=== PATIENT | male | born 1965 | race Caucasian/White ===

== ENCOUNTER 2020-02-03 16:39 | Inpatient (IN) | payer OTHER ==
[2020-02-03 17:24] LABS: ABSOLUTE BASOPHILS # (AUTO) 0.1 10^3/uL (0.0-0.2); ABSOLUTE EOSINOPHILS # (AUTO) 0.5 10^3/uL (0.0-0.6); ABSOLUTE LYMPHOCYTES (AUTO) 2.4 10^3/uL (0.5-4.7); ABSOLUTE MONOCYTES (AUTO) 1.6 10^3/uL (0.1-1.4); ABSOLUTE NEUT (AUTO) 12.7 10^3/uL (1.7-8.2); BASOPHILS % (AUTO) 0.7 % (0-2); HEMATOCRIT 43.8 % (37.9-51.0); HEMOGLOBIN 15.1 g/dL (13.5-17.0); LYMPHOCYTES % (AUTO) 13.9 % (13-45); MEAN CORPUSCULAR HEMOGLOBIN 32.7 pg (27.0-33.4); MEAN CORPUSCULAR HGB CONC 34.4 g/dL (32.0-36.0); MEAN CORPUSCULAR VOLUME 95 fl (80-97); MONOCYTES % (AUTO) 9.2 % (3-13); PLATELET COUNT 387 10^3/uL (150-450); RED BLOOD COUNT 4.62 10^6/uL (4.35-5.55); RED CELL DISTRIBUTION WIDTH 15.3 % (11.5-14.0); SEGMENTED NEUTROPHILS % (AUTO) 73.2 % (42-78); TOTAL CELLS COUNTED % (AUTO) 100 %; WHITE BLOOD COUNT 17.4 10^3/uL (4.0-10.5)
[2020-02-03] MEDS ORDERED: HYDROCODONE/ACETAMINOPHEN 5-325 MG TABLET PO ONE (17:57)
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
[2020-02-03] MEDS ORDERED: VANCOMYCIN HCL INJ 1000 MG VIAL IV ONE (19:14)
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
[2020-02-03 19:27] LABS: ALBUMIN 3.4 g/dL (3.5-5.0); ALKALINE PHOSPHATASE 108 U/L (38-126); ANION GAP 7 (5-19); ASPARTATE AMINO TRANSFERASE 36 U/L (17-59); BILIRUBIN,DIRECT 0.1 mg/dL (0.0-0.4); BILIRUBIN,TOTAL 0.8 mg/dL (0.2-1.3); BLOOD UREA NITROGEN 12 mg/dL (7-20); CALCIUM 8.8 mg/dL (8.4-10.2); CARBON DIOXIDE 30 mmol/L (22-30); CHLORIDE 99 mmol/L (98-107); GLUCOSE 128 mg/dL (75-110); POTASSIUM 3.4 mmol/L (3.6-5.0)
[2020-02-03] MEDS ORDERED: LORAZEPAM INJ 2 MG/1 ML VIAL IV PRN ×2 (20:38→23:05)
[2020-02-03] MEDS ORDERED: GUAIFENESIN SYRP 200 MG/10 ML UDC PO PRN (20:38)
[2020-02-03] MEDS ORDERED: ACETAMINOPHEN 325 MG TABLET PO PRN (20:38)
[2020-02-03] MEDS ORDERED: INSULIN REG, HUMAN 100 UNIT/ML 3 ML VIAL (PYX) SUBCUT PRN (20:38)
[2020-02-03] MEDS ORDERED: MAGNESIUM HYDROXIDE SUSP 30 ML UDCUP PO PRN (20:38)
[2020-02-03] MEDS ORDERED: MAG HYDROX/AL HYDROX/SIMETH SUSP 30 ML UDCUP PO PRN (20:38)
[2020-02-03] MEDS ORDERED: MORPHINE SULFATE 10 MG/ML INJ IV PRN ×5 (20:38→23:05)
[2020-02-03] MEDS ORDERED: HYDRALAZINE HCL INJ/PF 20 MG/1 ML SDV IV PRN (20:38)
[2020-02-03] MEDS ORDERED: DEXTROSE 40% GEL 15 GM TUBE PO PRN ×2 (20:45)
[2020-02-03] MEDS ORDERED: GLUCAGON,HUMAN RECOMB 1 MG INJ IM PRN (20:45)
[2020-02-03] MEDS ORDERED: DEXTROSE 50%-WATER 25 GM/50 ML DISP.SYRIN IV PRN ×2 (20:45)
[2020-02-03] MEDS: HEPARIN SOD (PORCINE) 5,000 UNIT/ML 1 ML VIAL SUBCUT SCH (21:26)
[2020-02-03] MEDS ORDERED: FAMOTIDINE 20 MG TABLET PO SCH (22:00)
[2020-02-03] MEDS ORDERED: SUCRALFATE 1 GM TABLET PO SCH (22:00)
[2020-02-03] MEDS ORDERED: MEROPENEM 1 GM VIAL IV SCH (22:00)
[2020-02-03] MEDS ORDERED: METOCLOPRAMIDE HCL 10 MG TABLET PO SCH (22:00)
[2020-02-03] MEDS: MEROPENEM 1 GM in NORMAL SALINE 50 ML IV SCH (22:40)
--- NOTE | 2020-02-03 22:53 | EKG REPORT ---
SEVERITY:- ABNORMAL ECG - SINUS RHYTHM ATRIAL PREMATURE COMPLEX FIRST DEGREE AV BLOCK LEFT ANTERIOR FASCICULAR BLOCK CONSIDER ANTEROSEPTAL INFARCT : Confirmed by: Karina Schulz 03-Feb-2020 22:52:24
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
[2020-02-03] MEDS ORDERED: HALOPERIDOL LACTATE INJ 5 MG/1 ML VIAL IV PRN (23:02)
[2020-02-04] MEDS: MORPHINE SULFATE 10 MG/ML INJ IV PRN ×3 (00:36→06:11)
[2020-02-04] MEDS: VANCOMYCIN HCL 1,500 MG in DEXTROSE 5%-WATER 250 ML IV SCH ×2 (02:34→10:14)
[2020-02-04] MEDS: HEPARIN SOD (PORCINE) 5,000 UNIT/ML 1 ML VIAL SUBCUT SCH ×3 (05:33→21:18)
[2020-02-04] MEDS: MEROPENEM 1 GM in NORMAL SALINE 50 ML IV SCH (05:33)
[2020-02-04] MEDS: PANTOPRAZOLE SODIUM 40 MG TABLET.DR PO SCH ×2 (05:34→17:07)
[2020-02-04] MEDS ORDERED: VANCOMYCIN HCL INJ 1000 MG VIAL IV SCH (06:00)
[2020-02-04 07:10] LABS: HEMATOCRIT 43.5 % (37.9-51.0); HEMOGLOBIN 15.2 g/dL (13.5-17.0); MEAN CORPUSCULAR VOLUME 94 fl (80-97); PLATELET COUNT 386 10^3/uL (150-450); RED BLOOD COUNT 4.61 10^6/uL (4.35-5.55); RED CELL DISTRIBUTION WIDTH 15.4 % (11.5-14.0); WHITE BLOOD COUNT 15.3 10^3/uL (4.0-10.5)
[2020-02-04 07:33] LABS: AMYLASE 33 U/L (30-110); ANION GAP 7 (5-19); BLOOD UREA NITROGEN 12 mg/dL (7-20); CALCIUM 8.9 mg/dL (8.4-10.2); CARBON DIOXIDE 31 mmol/L (22-30); CHLORIDE 97 mmol/L (98-107); CHOLESTEROL 108.03 mg/dL (0-200); GLUCOSE 100 mg/dL (75-110); POTASSIUM 3.4 mmol/L (3.6-5.0); TRIGLYCERIDES 97 mg/dL (<150)
[2020-02-04 07:44] LABS: DIRECT LDL 65 mg/dL (<100)
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
[2020-02-04] MEDS: INSULIN REG, HUMAN 100 UNIT/ML 3 ML VIAL (PYX) SUBCUT SCH ×4 (08:48→21:13)
[2020-02-04] MEDS ORDERED: BACITRACIN ZINC OINTMENT 15 GM TP SCH (10:00)
[2020-02-04] MEDS: KETOROLAC TROMETHAMINE INJ/PF 30 MG/1 ML SDV IV PRN ×3 (10:13→23:19)
[2020-02-04] MEDS: BUPROPION HCL 75 MG TABLET PO SCH ×2 (10:15→21:18)
[2020-02-04] MEDS: DOCUSATE SODIUM 100 MG CAPSULE PO SCH ×2 (10:16→17:07)
[2020-02-04] MEDS ORDERED: DIPHENHYDRAMINE HCL 25 MG CAPSULE PO PRN (10:27)
[2020-02-04] MEDS: NEOMY/BACITRAC ZN/POLY OINT 15 GM TP SCH ×2 (10:29→21:19)
[2020-02-04 11:42] LABS: FREE T3 4.44 pg/mL (2.77-5.27); FREE T4 (FREE THYROXINE) 1.56 ng/dL (0.78-2.19)
[2020-02-04] MEDS ORDERED: CEPHALEXIN 500 MG CAPSULE PO SCH (12:00)
[2020-02-04] MEDS: HYDROCODONE/ACETAMINOPHEN 5-325 MG TABLET PO PRN ×4 (12:06→20:10)
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
[2020-02-04] MEDS ORDERED: ONDANSETRON HCL INJ/PF 4 MG/2 ML SDV IV PRN (15:58)
[2020-02-04] MEDS: CLINDAMYCIN HCL 150 MG CAPSULE PO SCH ×3 (17:07→23:19)
[2020-02-04] MEDS: PROMETHAZINE HCL INJ 25 MG/1 ML VIAL IV PRN (17:15)
[2020-02-05] MEDS: HYDROCODONE/ACETAMINOPHEN 5-325 MG TABLET PO PRN ×2 (03:56→09:15)
[2020-02-05 05:06] LABS: HEMATOCRIT 41.8 % (37.9-51.0); HEMOGLOBIN 14.7 g/dL (13.5-17.0); MEAN CORPUSCULAR HGB CONC 35.3 g/dL (32.0-36.0); MEAN CORPUSCULAR VOLUME 93 fl (80-97); PLATELET COUNT 345 10^3/uL (150-450); RED BLOOD COUNT 4.47 10^6/uL (4.35-5.55); RED CELL DISTRIBUTION WIDTH 15.6 % (11.5-14.0); WHITE BLOOD COUNT 11.4 10^3/uL (4.0-10.5)
[2020-02-05 05:31] LABS: ANION GAP 6 (5-19); BLOOD UREA NITROGEN 20 mg/dL (7-20); CALCIUM 9.2 mg/dL (8.4-10.2); CARBON DIOXIDE 29 mmol/L (22-30); CHLORIDE 101 mmol/L (98-107); GLUCOSE 120 mg/dL (75-110)
[2020-02-05] MEDS: KETOROLAC TROMETHAMINE INJ/PF 30 MG/1 ML SDV IV PRN (06:17)
[2020-02-05] MEDS: HEPARIN SOD (PORCINE) 5,000 UNIT/ML 1 ML VIAL SUBCUT SCH (06:17)
[2020-02-05] MEDS: PANTOPRAZOLE SODIUM 40 MG TABLET.DR PO SCH (06:17)
[2020-02-05] MEDS: CLINDAMYCIN HCL 150 MG CAPSULE PO SCH (06:17)
[2020-02-05] MEDS: PROMETHAZINE HCL INJ 25 MG/1 ML VIAL IV PRN (06:20)
[2020-02-05] MEDS: INSULIN REG, HUMAN 100 UNIT/ML 3 ML VIAL (PYX) SUBCUT SCH (08:05)
[2020-02-05 08:23] VITALS: BP 139/75
[2020-02-05] MEDS: BUPROPION HCL 75 MG TABLET PO SCH (09:08)
[2020-02-05] MEDS: DOCUSATE SODIUM 100 MG CAPSULE PO SCH (09:09)
[2020-02-05] MEDS ORDERED: MULTIVITAMIN TABLET PO SCH (10:00)
[2020-02-05] MEDS ORDERED: FOLIC ACID 1 MG TABLET PO SCH (10:00)
[2020-02-05] MEDS ORDERED: THIAMINE HCL 100 MG TABLET PO SCH (10:00)
[2020-02-05] MEDS ORDERED: NICOTINE 14 MG/24 HR PATCH.TD24 TD SCH (10:00)
[2020-02-05] MEDS ORDERED: CHLORPROMAZINE HCL 50 MG TABLET PO SCH (10:30)
--- NOTE | 2020-02-05 10:35 | PDOC PROGRESS REPORT ---
Subjective Progress Note for:: 02/05/20 Subjective:: This is a 54-year-old diabetic male with ulcerations of the lower extremity. He has not been wearing his EDIN hose. He still complains of discomfort in his lower extremities. He is complaining of back pain at this time as well. He denies fevers, chills, chest pain, shortness of breath, dizziness, orthostasis, blurry vision, malaise, or fatigue. Reason For Visit: LEFT LOWER LEG CELLULITIS Physical Exam Vital Signs: Temp Pulse Resp BP Pulse Ox 97.5 F 74 18 139/75 H 93 02/05/20 08:00 02/05/20 08:00 02/05/20 08:00 02/05/20 08:00 02/05/20 08:00 Intake & Output 02/04/20 02/05/20 02/06/20 06:59 06:59 06:59 Intake Total 1230 2630 Balance 1230 2630 Weight 127 kg 127 kg General appearance: PRESENT: no acute distress, morbidly obese Eye exam: PRESENT: EOMI, PERRLA Mouth exam: PRESENT: moist, neck supple Neck exam: ABSENT: thyromegaly, tracheal deviation Respiratory exam: PRESENT: unlabored. ABSENT: tachypnea, wheezes Cardiovascular exam: ABSENT: tachycardia GI/Abdominal exam: PRESENT: soft. ABSENT: distended, tenderness Rectal exam: PRESENT: deferred Musculoskeletal exam: ABSENT: deformity Neurological exam: PRESENT: alert, awake Psychiatric exam: ABSENT: agitated, anxious Focused psych exam: PRESENT: restlessness - Patient does appear restless today, and does not want to sit down for an examination. He insists on moving continuously. Skin exam: PRESENT: erythema - Mild lower extremity erythema bilaterally., other - Shallow ulcerations to the lower extremity skin. There is also some edema. The patient has again declined to remove his shoes for an examination. Results Laboratory Results: 02/05/20 04:38 02/05/20 04:38 02/04/20 02/04/20 02/05/20 06:21 10:11 04:38 WBC 11.4 H RBC 4.47 Hgb 14.7 Hct 41.8 MCV 93 MCH 33.0 MCHC 35.3 RDW 15.6 H Plt Count 345 Sodium Potassium Chloride Carbon Dioxide Anion Gap BUN Creatinine Est GFR ( Amer) Glucose Lactic Acid 1.5 Calcium Magnesium Free T4 1.56 Free T3 pg/mL 4.44 02/05/20 04:38 WBC RBC Hgb Hct MCV MCH MCHC RDW Plt Count Sodium 135.6 L Potassium 4.0 Chloride 101 Carbon Dioxide 29 Anion Gap 6 BUN 20 Creatinine 0.86 Est GFR ( Amer) > 60 Glucose 120 H Lactic Acid Calcium 9.2 Magnesium 2.0 Free T4 Free T3 pg/mL Impressions: Tibia/Fibula X-Ray 02/03/20 17:56 IMPRESSION: NORMAL STUDY. Assessment & Plan - Diagnosis (1) Cellulitis of both lower extremities Is this a current diagnosis for this admission?: Yes - Plan Summary Plan Summary: This is a 54-year-old male with lower extremity erythema, ulcerations, and I believe superimposed chronic venous insufficiency. Yesterday, I recommended that he wash the ulcers with soap and water twice daily. He has not done this. I have also recommended EDIN hose. He is not wearing them. I have again recommended the utilization of EDIN hose, soap and water washings of his ulcerations, and the use of nonadherent dressings with antibiotic ointment. Continue systemic antibiotics per medical team. No surgical intervention planned at this time. Surgery will sign off. Please renotify with any questions or concerns.
[2020-02-05] MEDS: NEOMY/BACITRAC ZN/POLY OINT 15 GM TP SCH (10:55)
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
[2020-02-05] MEDS ORDERED: BENZTROPINE MESYLATE 1 MG TABLET PO SCH (22:00)
== END 2020-02-05 11:47 | disposition home or self-care (01) | DRG 603 ==
LOC: ER 16:39 → EH 19:34 → 4N 21:04
PROVIDERS: ADMIT Emergency Medicine; ATTEND Registered Nurse
DX: L03.116 Cellulitis of left lower limb (principal); F20.0 Paranoid schizophrenia; L03.115 Cellulitis of right lower limb; E78.5 Hyperlipidemia, unspecified; I10 Essential (primary) hypertension; E66.01 Morbid (severe) obesity due to excess calories; Z68.36 Body mass index [BMI] 36.0-36.9, adult; E11.9 Type 2 diabetes mellitus without complications; S30.811A Abrasion of abdominal wall, initial encounter; L08.9 Local infection of the skin and subcutaneous tissue, unspecified; X58.XXXA Exposure to other specified factors, initial encounter; I89.0 Lymphedema, not elsewhere classified; R00.0 Tachycardia, unspecified; M54.9 Dorsalgia, unspecified; K70.30 Alcoholic cirrhosis of liver without ascites; F10.20 Alcohol dependence, uncomplicated; F17.210 Nicotine dependence, cigarettes, uncomplicated; Z88.0 Allergy status to penicillin; Z88.2 Allergy status to sulfonamides; Z90.81 Acquired absence of spleen; Z79.84 Long term (current) use of oral hypoglycemic drugs; Z79.4 Long term (current) use of insulin; Z79.891 Long term (current) use of opiate analgesic; Z79.899 Other long term (current) drug therapy
CPT/HCPCS: 36415; 80048; 80053; 80061; 82150; 82962; 83036; 83605; 83690; 83735; 84439; 84443; 84481; 85025; 85027; 93005; 93010; 99285; J1644; J1815; J1885; J2185; J2270; J2550; J3370; J3490; J7060

== ENCOUNTER 2020-02-05 22:40 | Emergency (ER) | payer SELFPAY ==
[2020-02-05 23:44] VITALS: BP 100/52
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
== END 2020-02-06 02:00 ==
LOC: ER 22:40
DX: R52 Pain, unspecified (principal); E78.00 Pure hypercholesterolemia, unspecified; I10 Essential (primary) hypertension; E11.9 Type 2 diabetes mellitus without complications; Z88.2 Allergy status to sulfonamides; Z88.0 Allergy status to penicillin
CPT/HCPCS: 99284

== ENCOUNTER 2020-02-06 12:27 | Emergency (ER) | payer SELFPAY ==
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
[2020-02-06 13:05] LABS: APPEARANCE,URINE CLEAR; BILIRUBIN,URINE NEGATIVE (NEGATIVE); COLOR,URINE STRAW; GLUCOSE, URINE NEGATIVE (NEGATIVE); KETONES,URINE NEGATIVE (NEGATIVE); PROTEIN,URINE NEGATIVE (NEGATIVE); URINE SPECIFIC GRAVITY 1.002; UROBILINOGEN,URINE NEGATIVE mg/dL (<2.0)
[2020-02-06 13:33] LABS: URINE AMPHETAMINES SCREEN NEGATIVE; URINE BARBITURATES SCREEN NEGATIVE; URINE BENZODIAZEPINES SCREEN NEGATIVE; URINE MARIJUANA (THC) SCREEN NEGATIVE; URINE METHADONE SCREEN NEGATIVE; URINE PHENCYCLIDINE SCREEN NEGATIVE
[2020-02-06 13:34] LABS: URINE COCAINE SCREEN UNCONFIRMED POSITIVE
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
[2020-02-06] MEDS ORDERED: ACETAMINOPHEN 325 MG TABLET PO ONE (13:49)
[2020-02-06 14:36] LABS: HEMATOCRIT 44.7 % (37.9-51.0); HEMOGLOBIN 15.3 g/dL (13.5-17.0); MEAN CORPUSCULAR HEMOGLOBIN 32.3 pg (27.0-33.4); MEAN CORPUSCULAR HGB CONC 34.2 g/dL (32.0-36.0); MEAN CORPUSCULAR VOLUME 94 fl (80-97); PLATELET COUNT 399 10^3/uL (150-450); RED BLOOD COUNT 4.73 10^6/uL (4.35-5.55); RED CELL DISTRIBUTION WIDTH 15.6 % (11.5-14.0); WHITE BLOOD COUNT 11.3 10^3/uL (4.0-10.5)
[2020-02-06 14:54] LABS: ABSOLUTE LYMPHOCYTES# (MANUAL) 3.3 10^3/uL (0.5-4.7); ABSOLUTE MONOCYTES # (MANUAL) 1.4 10^3/uL (0.1-1.4); BASOPHILS % (MANUAL) 3 % (0-2); EOSINOPHILS % (MANUAL) 1 % (0-6); LYMPHOCYTES % (MANUAL) 25 % (13-45); METAMYELOCYTES % (MANUAL) 1 % (0-1); MONOCYTES % (MANUAL) 12 % (3-13); SEGMENTED NEUTROPHILS % (MAN) 54 % (42-78); TOTAL CELLS COUNTED 100
[2020-02-06 14:55] LABS: ALBUMIN 3.8 g/dL (3.5-5.0); ALCOHOL 104 mg/dL (NONE DETECTED); ALKALINE PHOSPHATASE 109 U/L (38-126); ANION GAP 10 (5-19); ANISOCYTOSIS SLIGHT; ASPARTATE AMINO TRANSFERASE 47 U/L (17-59); BILIRUBIN,TOTAL 0.6 mg/dL (0.2-1.3); BLOOD UREA NITROGEN 10 mg/dL (7-20); CALCIUM 8.9 mg/dL (8.4-10.2); CARBON DIOXIDE 28 mmol/L (22-30); CHLORIDE 100 mmol/L (98-107); GLUCOSE 94 mg/dL (75-110); HOWELL-JOLLY BODIES PRESENT; PAPPENHEIMER BODIES PRESENT; POLYCHROMASIA SLIGHT; POTASSIUM 3.8 mmol/L (3.6-5.0); TARGET CELLS SLIGHT; TOTAL PROTEIN 7.7 g/dL (6.3-8.2)
[2020-02-06 14:56] LABS: PLATELET COMMENT ADEQUATE
[2020-02-06] MEDS ORDERED: NAPROXEN 250 MG TABLET PO ONE (15:33)
[2020-02-06 20:14] VITALS: BP 161/88
--- NOTE | 2020-02-07 00:02 | EKG REPORT ---
SEVERITY:- ABNORMAL ECG - SINUS RHYTHM FIRST DEGREE AV BLOCK ANTERIOR INFARCT, AGE INDETERMINATE BORDERLINE PROLONGED QT INTERVAL : Confirmed by: Karina Schulz 07-Feb-2020 00:01:38
== END 2020-02-06 20:14 | disposition home or self-care (01) ==
LOC: ER 12:27
DX: F14.19 Cocaine abuse with unspecified cocaine-induced disorder (principal); L03.116 Cellulitis of left lower limb; M79.605 Pain in left leg; F17.200 Nicotine dependence, unspecified, uncomplicated; I10 Essential (primary) hypertension; E11.9 Type 2 diabetes mellitus without complications
CPT/HCPCS: 36415; 80053; 80307; 81001; 83690; 84484; 85025; 93005; 93010; 99284

== ENCOUNTER 2020-02-06 22:46 | Emergency (ER) | payer SELFPAY ==
[2020-02-06 22:57] VITALS: BP 145/94
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
== END 2020-02-07 01:45 | disposition home or self-care (01) ==
LOC: ER 22:46
DX: R54 Age-related physical debility (principal); R06.02 Shortness of breath; Z88.0 Allergy status to penicillin; Z88.2 Allergy status to sulfonamides; Z87.891 Personal history of nicotine dependence; I10 Essential (primary) hypertension; E11.9 Type 2 diabetes mellitus without complications
CPT/HCPCS: 99283

== ENCOUNTER 2020-02-22 16:11 | Emergency (ER) | payer SELFPAY ==
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
[2020-02-22 16:52] LABS: APPEARANCE,URINE CLEAR; BILIRUBIN,URINE NEGATIVE (NEGATIVE); COLOR,URINE YELLOW; GLUCOSE, URINE NEGATIVE (NEGATIVE); KETONES,URINE NEGATIVE (NEGATIVE); LEUKOCYTE ESTERASE,URINE NEGATIVE (NEGATIVE); NITRITE,URINE NEGATIVE (NEGATIVE); PROTEIN,URINE NEGATIVE (NEGATIVE); URINE SPECIFIC GRAVITY 1.008; UROBILINOGEN,URINE NEGATIVE mg/dL (<2.0)
[2020-02-22 17:08] LABS: URINE AMPHETAMINES SCREEN NEGATIVE; URINE BARBITURATES SCREEN NEGATIVE; URINE COCAINE SCREEN NEGATIVE; URINE MARIJUANA (THC) SCREEN NEGATIVE; URINE METHADONE SCREEN NEGATIVE; URINE PHENCYCLIDINE SCREEN NEGATIVE
[2020-02-22 17:09] LABS: URINE BENZODIAZEPINES SCREEN UNCONFIRMED POSITIVE
[2020-02-22 17:41] LABS: HEMATOCRIT 45.4 % (37.9-51.0); MEAN CORPUSCULAR HEMOGLOBIN 33.2 pg (27.0-33.4); MEAN CORPUSCULAR HGB CONC 35.3 g/dL (32.0-36.0); MEAN CORPUSCULAR VOLUME 94 fl (80-97); PLATELET COUNT 440 10^3/uL (150-450); RED BLOOD COUNT 4.82 10^6/uL (4.35-5.55); RED CELL DISTRIBUTION WIDTH 15.2 % (11.5-14.0); WHITE BLOOD COUNT 17.7 10^3/uL (4.0-10.5)
[2020-02-22] MEDS ORDERED: KETOROLAC TROMETHAMINE 60 MG/2 ML SDV IM ONE (17:52)
[2020-02-22 17:56] LABS: ALBUMIN 4.2 g/dL (3.5-5.0); ALKALINE PHOSPHATASE 104 U/L (38-126); ANION GAP 13 (5-19); ASPARTATE AMINO TRANSFERASE 40 U/L (17-59); BILIRUBIN,DIRECT 0.2 mg/dL (0.0-0.4); BILIRUBIN,TOTAL 1.4 mg/dL (0.2-1.3); BLOOD UREA NITROGEN 18 mg/dL (7-20); CALCIUM 9.6 mg/dL (8.4-10.2); CARBON DIOXIDE 30 mmol/L (22-30); CHLORIDE 87 mmol/L (98-107); GLUCOSE 126 mg/dL (75-110); POTASSIUM 3.9 mmol/L (3.6-5.0); TOTAL PROTEIN 8.2 g/dL (6.3-8.2)
[2020-02-22 18:01] LABS: ABSOLUTE LYMPHOCYTES# (MANUAL) 3.5 10^3/uL (0.5-4.7); ABSOLUTE MONOCYTES # (MANUAL) 0.9 10^3/uL (0.1-1.4); BASOPHILS % (MANUAL) 3 % (0-2); EOSINOPHILS % (MANUAL) 1 % (0-6); LYMPHOCYTES % (MANUAL) 18 % (13-45); MONOCYTES % (MANUAL) 5 % (3-13); SEGMENTED NEUTROPHILS % (MAN) 71 % (42-78); TOTAL CELLS COUNTED 100
[2020-02-22 18:03] LABS: ANISOCYTOSIS SLIGHT; PLATELET COMMENT ADEQUATE; PLATELET LARGE PRESENT; POLYCHROMASIA SLIGHT; TOXIC GRANULATION SLIGHT; TOXIC VACUOLATION PRESENT
[2020-02-22] MEDS ORDERED: HYDROCODONE/ACETAMINOPHEN 5-325 MG TABLET PO ONE ×2 (18:17→19:35)
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
[2020-02-22] MEDS ORDERED: NICOTINE 21 MG/24 HR PATCH.TD24 TD ONE (20:46)
[2020-02-22] MEDS ORDERED: TRAMADOL HCL 50 MG TABLET PO ONE (20:47)
[2020-02-22] MEDS ORDERED: CLINDAMYCIN 600 MG/D5W RTU 600 MG/50 ML RTUPB IV ONE (21:04)
[2020-02-22] MEDS ORDERED: ONDANSETRON HCL INJ/PF 4 MG/2 ML SDV IV ONE (21:47)
[2020-02-22] MEDS ORDERED: MORPHINE SULFATE 10 MG/ML INJ IV ONE (21:48)
[2020-02-22 22:46] VITALS: BP 112/70
== END 2020-02-22 22:57 | disposition short-term general hospital (02) ==
LOC: ER 16:11
DX: S39.94XA Unspecified injury of external genitals, initial encounter (principal); N48.22 Cellulitis of corpus cavernosum and penis; X58.XXXA Exposure to other specified factors, initial encounter; F17.200 Nicotine dependence, unspecified, uncomplicated; I10 Essential (primary) hypertension; E11.9 Type 2 diabetes mellitus without complications; Z87.892 Personal history of anaphylaxis; Z88.0 Allergy status to penicillin; Z88.8 Allergy status to other drugs, medicaments and biological substances; Z88.2 Allergy status to sulfonamides
CPT/HCPCS: 99284; 96375; 96365; 36415; 87040; 87086; 85025; 87088; 80053; 81001; 80307; J2270; J2405

== ENCOUNTER 2020-07-10 20:07 | Emergency (ER) | payer OTHER ==
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
[2020-07-10 21:27] LABS: HEMATOCRIT 46.3 % (37.9-51.0); HEMOGLOBIN 15.9 g/dL (13.5-17.0); MEAN CORPUSCULAR HEMOGLOBIN 31.6 pg (27.0-33.4); MEAN CORPUSCULAR HGB CONC 34.3 g/dL (32.0-36.0); MEAN CORPUSCULAR VOLUME 92 fl (80-97); PLATELET COUNT 379 10^3/uL (150-450); RED BLOOD COUNT 5.02 10^6/uL (4.35-5.55); RED CELL DISTRIBUTION WIDTH 15.5 % (11.5-14.0); WHITE BLOOD COUNT 12.9 10^3/uL (4.0-10.5)
--- NOTE | 2020-07-10 21:44 | RADIOLOGY REPORT (SQ) ---
XR CHEST 1 VIEW HISTORY: Chest pain. COMPARISON: None. FINDINGS: The heart size is enlarged with mild central pulmonary vascular congestion. No consolidation, pleural effusion, or pneumothorax is seen. No acute bony findings are seen. Dual lead left chest wall pacemaker. IMPRESSION: Mild pulmonary edema pattern, without pleural effusions or focal consolidation.
[2020-07-10 21:47] LABS: ABSOLUTE LYMPHOCYTES# (MANUAL) 3.5 10^3/uL (0.5-4.7); ABSOLUTE MONOCYTES # (MANUAL) 1.3 10^3/uL (0.1-1.4); BAND NEUTROPHILS % (MANUAL) 1 % (3-5); BASOPHILS % (MANUAL) 0 % (0-2); EOSINOPHILS % (MANUAL) 4 % (0-6); LYMPHOCYTES % (MANUAL) 26 % (13-45); MONOCYTES % (MANUAL) 10 % (3-13); SEGMENTED NEUTROPHILS % (MAN) 58 % (42-78); TOTAL CELLS COUNTED 100
--- NOTE | 2020-07-10 21:47 | RADIOLOGY REPORT (SQ) ---
XR ABDOMEN 1 VIEW (KUB) HISTORY: Abdominal pain. COMPARISON: None. FINDINGS: There is a nonobstructive bowel gas pattern. No evidence of pneumoperitoneum. No radiopaque urinary stones are seen. The visualized lungs are clear. The bony structures are preserved. IMPRESSION: No acute findings.
[2020-07-10 21:49] LABS: ALBUMIN 4.1 g/dL (3.5-5.0); ALKALINE PHOSPHATASE 126 U/L (38-126); ANION GAP 10 (5-19); ANISOCYTOSIS SLIGHT; ASPARTATE AMINO TRANSFERASE 46 U/L (17-59); BILIRUBIN,DIRECT 0.5 mg/dL (0.0-0.4); BILIRUBIN,TOTAL 0.8 mg/dL (0.2-1.3); BLOOD UREA NITROGEN 10 mg/dL (7-20); CALCIUM 9.7 mg/dL (8.4-10.2); CARBON DIOXIDE 29 mmol/L (22-30); CHLORIDE 99 mmol/L (98-107); GLUCOSE 111 mg/dL (75-110); OVALOCYTES SLIGHT; PLATELET COMMENT ADEQUATE; POIKILOCYTOSIS SLIGHT; POLYCHROMASIA SLIGHT; TOTAL PROTEIN 7.8 g/dL (6.3-8.2)
--- NOTE | 2020-07-10 21:54 | RADIOLOGY REPORT (SQ) ---
EXAM DESCRIPTION: [facility]: XR FOOT 2 VIEWS BILATERAL Views: 2 views of each foot CLINICAL HISTORY: 54 years Male; foot pain; COMPARISON: None. FINDINGS: Left: Negative for acute fracture, dislocation, or radiopaque foreign body. Small Achilles calcaneal spur. Right: Negative for acute fracture, dislocation, or radiopaque foreign body. No lytic bone changes or acute periosteal reaction. IMPRESSION: 1. No acute findings.
[2020-07-10] MEDS ORDERED: FUROSEMIDE 40 MG TABLET PO ONE (23:02)
[2020-07-10] MEDS ORDERED: BUMETANIDE INJ/PF 1 MG/4 ML SDV IM ONE (23:03)
[2020-07-10] MEDS ORDERED: OXYCODONE-ACETAMINOPHEN 5-325 MG TABLET PO ONE (23:03)
[2020-07-11 00:37] VITALS: BP 151/85
--- NOTE | 2020-07-11 10:42 | EKG REPORT ---
SEVERITY:- ABNORMAL ECG - SINUS RHYTHM FIRST DEGREE AV BLOCK LEFT AXIS DEVIATION CONSIDER ANTEROSEPTAL INFARCT : Confirmed by: Sharla Ordonez MD 11-Jul-2020 10:40:58
== END 2020-07-11 00:20 | disposition home or self-care (01) ==
LOC: ER 20:07
DX: I11.0 Hypertensive heart disease with heart failure (principal); I50.9 Heart failure, unspecified; I87.2 Venous insufficiency (chronic) (peripheral); R07.9 Chest pain, unspecified; R53.1 Weakness; E11.9 Type 2 diabetes mellitus without complications; Z87.891 Personal history of nicotine dependence; Z95.810 Presence of automatic (implantable) cardiac defibrillator; Z87.892 Personal history of anaphylaxis; Z88.0 Allergy status to penicillin; Z88.8 Allergy status to other drugs, medicaments and biological substances; Z82.49 Family history of ischemic heart disease and other diseases of the circulatory system
CPT/HCPCS: 93005; 99284; 96372; 36415; 85025; 80053; 84484; 71045; 74018; 73620; 93010; J3490

== ENCOUNTER 2020-08-29 09:53 | Emergency (ER) | payer OTHER ==
[2020-08-29] MEDS ORDERED: KETOROLAC TROMETHAMINE 60 MG/2 ML SDV IM ONE (12:05)
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
[2020-08-29] MEDS ORDERED: DIPH/PERTUSS(ACELL)/TETANUS VAC/PF 0.5 ML SYR (>=10YO) IM ONE (12:48)
[2020-08-29 13:06] LABS: HEMATOCRIT 45.1 % (37.9-51.0); HEMOGLOBIN 15.2 g/dL (13.5-17.0); MEAN CORPUSCULAR HEMOGLOBIN 31.8 pg (27.0-33.4); MEAN CORPUSCULAR HGB CONC 33.7 g/dL (32.0-36.0); MEAN CORPUSCULAR VOLUME 94 fl (80-97); PLATELET COUNT 503 10^3/uL (150-450); RED BLOOD COUNT 4.78 10^6/uL (4.35-5.55); RED CELL DISTRIBUTION WIDTH 14.4 % (11.5-14.0); WHITE BLOOD COUNT 14.1 10^3/uL (4.0-10.5)
[2020-08-29 13:13] LABS: ABSOLUTE MONOCYTES # (MANUAL) 1.4 10^3/uL (0.1-1.4); BASOPHILS % (MANUAL) 0 % (0-2); EOSINOPHILS % (MANUAL) 0 % (0-6); LYMPHOCYTES % (MANUAL) 21 % (13-45); MONOCYTES % (MANUAL) 10 % (3-13); SEGMENTED NEUTROPHILS % (MAN) 69 % (42-78); TOTAL CELLS COUNTED 100
[2020-08-29 13:14] LABS: PLATELET COMMENT ADEQUATE; RBC MORPHOLOGY COMMENT NORMO-CYTIC/CHROMIC
--- NOTE | 2020-08-29 13:17 | RADIOLOGY REPORT (SQ) ---
EXAM DESCRIPTION: TIBIA FIBULA RIGHT IMAGES COMPLETED DATE/TIME: 08/29/2020 11:19 am REASON FOR STUDY: abscess to r tib/fib x 2 week, r/o osteo COMPARISON: None. NUMBER OF VIEWS: Two views. TECHNIQUE: Two radiographic images acquired of the right tibia and fibula to include the knee and an kle in at least one projection. LIMITATIONS: None. FINDINGS: MINERALIZATION: Normal. BONES: No acute fracture or dislocation. No worrisome bone lesions. SOFT TISSUES: No obvious swelling or foreign body. OTHER: No other significant finding. IMPRESSION: NEGATIVE STUDY OF THE RIGHT TIBIA AND FIBULA. NO RADIOGRAPHIC EVIDENCE OF ACUTE INJURY. TECHNICAL DOCUMENTATION: JOB ID: [id number] 2010 [employer]- All Rights Reserved Reading location - IP/workstation name: [email or web address]
[2020-08-29 13:20] LABS: ANION GAP 10 (5-19); BLOOD UREA NITROGEN 14 mg/dL (7-20); CALCIUM 9.4 mg/dL (8.4-10.2); CARBON DIOXIDE 29 mmol/L (22-30); CHLORIDE 97 mmol/L (98-107); GLUCOSE 130 mg/dL (75-110); POTASSIUM 4.4 mmol/L (3.6-5.0)
[2020-08-29] MEDS ORDERED: ACETAMINOPHEN 325 MG TABLET PO ONE (13:40)
[2020-08-29] MEDS ORDERED: LIDOCAINE 1.5%/EPINEPHRINE INJ-PF 30 ML SDV INJ ONE (13:41)
[2020-08-29] MEDS ORDERED: LIDOCAINE 1% INJ-PF (10 MG/ML) 30 ML SDV INJ ONE (13:42)
[2020-08-29] MEDS ORDERED: CLINDAMYCIN HCL 150 MG CAPSULE PO ONE (13:47)
--- NOTE | 2020-08-29 15:29 | RADIOLOGY REPORT (SQ) ---
EXAM DESCRIPTION: VENOUS UNILATERAL LOWER IMAGES COMPLETED DATE/TIME: 08/29/2020 1:51 pm REASON FOR STUDY: right calf pain, has anterior abscess, hx of dvt COMPARISON: None. TECHNIQUE: Dynamic and static foote scale and color images acquired of the right leg venous system. S elected spectral images acquired with additional compression and augmentation maneuvers. The contrala teral common femoral vein and saphenofemoral junction were also imaged. Images stored on PACS. LIMITATIONS: None. FINDINGS: COMMON FEMORAL: Normal phasicity, compression and augmentation. No visualized echogenic ma terial on foote scale. No defects on color images. FEMORAL: Normal compression and augmentation. No visualized echogenic material on foote scale. No defe cts on color images. POPLITEAL: Normal compression, augmentation. No visualized echogenic material on foote scale. No defec ts on color images. CALF VESSELS: Normal compression, augmentation. No visualized echogenic material on foote scale. No de fects on color images. GSV and SSV: Normal compression, augmentation. No visualized echogenic material on foote scale. No def ects on color images. ANY DEEP VENOUS INSUFFICIENCY: Not evaluated. ANY EVIDENCE OF POPLITEAL CYST: No. OTHER: No other significant finding. CONTRALATERAL COMMON FEMORAL VEIN AND SAPHENOFEMORAL JUNCTION: Normal phasicity, compression and augmentation. No visualized echogenic material on foote scale. No de fects on color images. IMPRESSION: NO EVIDENCE OF DVT OR SVT IN THE RIGHT LEG. TECHNICAL DOCUMENTATION: JOB ID: [id number] 2010 [employer]- All Rights Reserved Reading location - IP/workstation name: [email or web address]
[2020-08-29 15:40] VITALS: BP 132/88
== END 2020-08-29 14:45 | disposition home or self-care (01) ==
LOC: ER 09:53
DX: L02.415 Cutaneous abscess of right lower limb (principal); M79.661 Pain in right lower leg; E11.9 Type 2 diabetes mellitus without complications; I10 Essential (primary) hypertension; Z23 Encounter for immunization; Z87.892 Personal history of anaphylaxis; Z88.0 Allergy status to penicillin; Z88.8 Allergy status to other drugs, medicaments and biological substances; Z88.2 Allergy status to sulfonamides; Z87.891 Personal history of nicotine dependence
CPT/HCPCS: 99285; 96372; 90471; 36415; 87040; 87070; 87205; 85025; 87077; 80048; 87186; 93971; 73590; 90715; 10060; J1885; J3490